=== PATIENT | female | born 1950 ===

== ENCOUNTER → 2021-04-03 09:09 | Outpatient (CLI) | payer MEDICARE, OTHER, SELFPAY ==
[2021-04-03 11:45] LABS: BUN Creatinine Ratio 23.6 (6-22); Blood Urea Nitrogen 21 mg/dL (7-17); Calcium 9.8 mg/dL (8.4-10.2); Carbon Dioxide 30 mmol/L (22-32); Chloride 102 mmol/L (98-107); Estimated Glomerular Filt Rate > 60.0 mL/min (>60); Glucose 108 mg/dL (80-110); HEMOLYSIS < 15 (0-50); Potassium 4.3 mmol/L (3.4-5.1); Sodium 139 mmol/L (137-145)
[2021-04-04 11:28] LABS: Add Manual Diff / Slide Review NO; Basophils Absolute Auto 0 /uL (0-100); Basophils Percent Auto 0.4 % (0-2); Eosinophils Absolute Auto 0 /uL (0-450); Hematocrit 37.7 % (36-46); Hemoglobin 12.5 g/dL (12.0-16.0); Lymphocytes Absolute Auto 1700 /uL (1100-4500); Lymphocytes Percent Auto 14.9 % (25-40); Mean Corpuscular HGB Conc 33.2 % (30-36); Mean Corpuscular Hemoglobin 30.7 PG (26-34); Mean Corpuscular Volume 92.6 fL (80-100); Monocytes Absolute Auto 800 /uL (0-900); Monocytes Percent Auto 6.7 % (3-14); Neutrophils Absolute Auto 8800 /uL (1500-7000); Platelet Count 274 X10^3/uL (150-400); Red Blood Cell Count 4.07 X10^6/uL (4.0-5.2); Red Cell Distribution Width 13.3 % (11.6-14.8); White Blood Cell Count 11.2 X10^3/uL (4.5-11.0)
== END ==
PROVIDERS: Referring Provider Orthopaedic Surgery Orthopaedic Surgery of the Spine; Visit Provider Orthopaedic Surgery Orthopaedic Surgery of the Spine
DX: Z01.818 Encounter for other preprocedural examination (principal); Z01.812 Encounter for preprocedural laboratory examination; I10 Essential (primary) hypertension
CPT/HCPCS: 36415; 80048; 85025; 93005; 93010

== ENCOUNTER → 2021-06-30 08:57 | Outpatient (CLI) | payer MEDICARE, OTHER, SELFPAY ==
[2021-06-30 10:14] LABS: COVID19 -Nasal RAPID Negative (Negative)
== END ==
PROVIDERS: Visit Provider Physician Assistant
DX: Z01.812 Encounter for preprocedural laboratory examination (principal); Z20.822 Contact with and (suspected) exposure to COVID-19
CPT/HCPCS: 87635

== ENCOUNTER 2021-07-02 09:16 | Day surgery (SDC) | payer MEDICARE, OTHER, SELFPAY ==
[2021-06-25 09:39] VITALS: BMI 24.2
[2021-07-02 09:47] VITALS: BP 153/76; PULSE 81; RESP 12; TEMP 36.4; O2SAT 100; BMI 24.6
[2021-07-02] MEDS: ACETAMINOPHEN 325 MG TABLET 650 MG PO (09:56)
[2021-07-02] MEDS: GABAPENTIN 300 MG CAPSULE PO (09:56)
[2021-07-02] MEDS: LACTATED RINGERS 1,000 ML 42 ML IV ×2 (09:56→12:23)
--- NOTE | 2021-07-02 11:07 | PM.PREOP ---
Pre-operative Note COVID-19 COVID-19 status: Negative Result date/Date tested (Pos, Neg/Pending): 06/30/21 Interval Note History & Physical reviewed/Exam performed by Physician: Yes Changes to H&P: No
--- NOTE | 2021-07-02 11:52 | P.OP_ITS ---
Operative Date/Time/Diagnoses Date of procedure: 07/02/21 Time of procedure: 11:50 Pre-op diagnosis: 1. L4-5 spondylolisthesis 2. L4-5 spinal stenosis with neurogenic claudication Post-op diagnosis: same Procedure & Clinicians Procedure: 1. L4-5 Postero-lateral and posterior interbody fusion 2. L4-5 interbody cage placement. 3. L4-5 decompressive laminectomy with bilateral facetecomies 4. L4-5 Posterior non-segmental instrumentation 5. [place] of bone marrow from iliac crest 6. Utilization of microsurgical technique and operating microscope Same procedure as scheduled: Yes Indications: Patient has been having chronic back pain and worsening lumbar radiculopathy. Patient failed multiple conservative management with worsening pain weakness and numbness in her lower extremity. Patient has been having difficulty performing activity of daily living. After discussing risks benefits of treatment options, patient elected proceed with surgery. Surgeon: Tad Weiner Salesperson Women'S Hats: Ovidio Gay Click Yes if Unassisted: No Anesthesia Type: General Operative Notes Closure Type: primary Specimen(s): none sent Prosthetic devices, grafts, tissues, transplants, or devices: Globus revolve screws, Rise cage Blood products transfused: none Complications: none Post-operative Condition: stable
[2021-07-02 12:17] VITALS: BP 124/65; PULSE 75; RESP 16; TEMP 36.7; O2SAT 99
[2021-07-02 12:22] VITALS: BP 120/65; PULSE 73; RESP 14; O2SAT 99
--- NOTE | 2021-07-02 12:27 | PM.EVENT ---
Event Note Date Patient Seen: 07/02/21 Time Patient Seen: 11:16 Event Note: DIFFICULT AIRWAY NOTE Patient presented for spinal surgery with Dr. Weiner. Patient was brought into the OR, PEDRO monitors applied and pre-oxygenated for >3 minutes in stretcher. IV induction with adequate mask ventilation. First direct layngoscopy with sharif 2 blade yielded a grade 2b view with the bottoms of the arytenoids barely visible with a BURP maneuver, unable to pass ETT. 2nd DL with Mac 3 gave a similar view, 6.5 ETT able to be passed. EtCO2 present but strange waveform. Bilateral coarse breathsounds present, but continued strange or abscent waveform and high pressures with ventilator. Additional IV sedation given, ETT withdrawn, mask ventilation with Oralpharyngeal airway accomplished with (+) EtCO2 tracing. Additional IV sedation and paralysis given. 3rd look with glidescope LoPro S3, (additionally patient's hair bun moved to facilitate better positioning). View obstructed by right tonsillar pillar, epiglottis not well visualized, base of arytenoids found, 6.5 ETT passed. Again EtCO2 wave strange or abscent. (+) coarse bilateral breath sounds. Albuterol given through ETT. Concern for possible leak. ETT exchanged over tube exchanger (6.0). SpO2 declining. Assistance called. Dr. Martin available and willing to assist. [place] placed below head, moved up in stretcher. DL with Sharif 2 with similar grade 2b view, 6.0 ETT passed. Again EtCO2 poor, high ventilator pressures and declining SpO2. Low dose epinephrine and additional albuterol given. ETT removed, with successful mask ventilation with 2 providers and OPA. Spontaneous ventilation returned with adequate tidal volumes and continued 100% O2 saturation. Decision made to reschedule case. Patient taken to PACU, with good vital signs there. Decadron and ondansetron given for airway swelling and nausea prevention. For rescheduling, patient will be noted to have had a difficult airway in the past. Would anticipate successful intubation with optimal positioning, first look with glidescope or optical stylette (available to one of my colleagues) and low threshold for awake intubation if unsuccessful first laryngoscopy. Naima CULLEN Anesthesiology
[2021-07-02 12:31] VITALS: BP 127/67; PULSE 73; RESP 16; O2SAT 99
[2021-07-02 12:33] VITALS: BP 128/68; PULSE 73; RESP 14; TEMP 36.7; O2SAT 99
[2021-07-02 13:15] VITALS: BP 137/77; PULSE 70; RESP 14; TEMP 36.2; O2SAT 100
--- NOTE | 2021-07-02 13:20 | SUR.PHASEII ---
[Procedure aborted. Dr Kingsley and Dr Weiner spoke with pt in Phase II.
--- NOTE | 2021-07-05 15:47 | PM.PN.1 ---
Subjective Subjective Interval history: TELEPHONE ENCOUNTER Called patient at surgeon request. Complaint of chest and upper body tightness/muscle spasms. Patient was sleeping, but son described what had been going on. Likely muscle pain/soreness from succinylcholine use. Son stated that robaxin prescribed yesterday has helped some, but makes her tired. He was told by the RN to do acetaminophen and ibuprophen scheduled Q8hr, but was unsure whether it was okay with the muscle relaxant. Also throat sore. Recommended continue scheduled acetaminophen and ibuprofen. Explained the muscle pain caused by succinylcholine and its likely course. Throat pain likely for several days after multiple airway manipulations. Lozenges, tea with honey can help. He expressed understanding and will contact if has further questions. Exam Vital Signs (past 8 hours): Oxygen Delivery Method Room Air [facility] Medical History (Updated 07/02/21 @ 12:42 by Naima Kingsley MD) Arthritis Difficult airway Easy bruisability HLD (hyperlipidemia) HTN (hypertension) Numbness and tingling of both feet Numbness and tingling of both legs Seasonal depression Surgical History (Updated 06/25/21 @ 10:11 by Shawna Deleon RN) Hx of colonoscopy Social History household members: children Smoking Status: Former smoker alcohol intake: current
== END 2021-07-02 13:50 | disposition home or self-care (01) ==
LOC: OR 09:18 → AC 09:18
PROVIDERS: PCP Physician Assistant Medical; Referring Provider Orthopaedic Surgery Orthopaedic Surgery of the Spine; Visit Provider Orthopaedic Surgery Orthopaedic Surgery of the Spine
PROC: (CPT 22633; principal; 2021-07-02 11:15)
DX: M48.062 Spinal stenosis, lumbar region with neurogenic claudication (principal); M43.16 Spondylolisthesis, lumbar region; Z53.09 Procedure and treatment not carried out because of other contraindication
CPT/HCPCS: 22633; 82962; J0330; J1100; J2405; J2704

== ENCOUNTER → 2021-08-15 08:07 | Outpatient (CLI) | payer MEDICARE, OTHER, SELFPAY ==
[2021-08-15 14:19] LABS: COVID19 -Nasal RAPID Negative (Negative)
== END ==
PROVIDERS: PCP Physician Assistant Medical; Visit Provider Physician Assistant
DX: Z20.822 Contact with and (suspected) exposure to COVID-19 (principal)
CPT/HCPCS: 87635; C9803

== ENCOUNTER 2021-08-17 10:38 | Inpatient (IN) | payer MEDICARE, OTHER, SELFPAY ==
[2021-08-13 09:51] VITALS: BMI 24.2
[2021-08-17] VITALS (15 sets, daily range): BP systolic 118–177; BP diastolic 68–91; PULSE 59–95; RESP 12–18; TEMP 36.3–37.1; O2SAT 92–100; BMI 24.2
[2021-08-17] MEDS: LACTATED RINGERS 1,000 ML 42 ML IV ×2 (11:12→16:00)
--- NOTE | 2021-08-17 13:16 | PM.PREOP ---
Pre-operative Note COVID-19 COVID-19 status: Negative Result date/Date tested (Pos, Neg/Pending): 08/15/21 Interval Note History & Physical reviewed/Exam performed by Physician: Yes Changes to H&P: No
[2021-08-17] MEDS: CEFAZOLIN 1 GM VIAL 2 GM IV (14:10)
--- NOTE | 2021-08-17 14:28 | SUR.OPER ---
Prone on spine table, head in foam head support, padded chest and pelvic supports, gel pad at knees, lower legs supported by pillows; nipples, genitalia and toes free of pressure, arms secured on foam padded arm boards at <90 degrees abduction. Tape over blanket at thigh secured to table.
[2021-08-17] MEDS: BUPIVACAINE LIPOSOME 266 MG/20 ML VIAL INJ (14:35)
[2021-08-17] MEDS: BUPIVACAINE 0.25% (PF) VIAL 30 ML INJ (14:38)
[2021-08-17] MEDS: EPINEPHrine 1 MG/ML SUBCUT (14:40)
--- NOTE | 2021-08-17 16:28 | DI.RAD.S_ITS ---
PROCEDURE: XR LUMBAR SPINE 2-3V INDICATIONS: L4-5 TLIF TECHNIQUE: 2 views of the lumbar spine were acquired. COMPARISON: [facility], XR LUMBAR SPINE 2 OR 3 VIEWS, 01/25/2021, 11:20. FINDINGS: Fluoroscopic images demonstrating L4-5 posterior fusion with intervertebral spacer. There is good anatomic alignment. IMPRESSION: Intraoperative fluoroscopic images. Dictated by: Carrie Zepeda M.D. on 08/17/2021 at 16:43 Approved by: Carrie Zepeda M.D. on 08/17/2021 at 16:43
--- NOTE | 2021-08-17 16:37 | PM.OP.1 ---
Operative Date/Time/Diagnoses Date of procedure: 08/17/21 Time of procedure: 13:00 Pre-op diagnosis: 1. L4-5 spondylolisthesis 2. L4-5 spinal stenosis with neurogenic claudication 3. L3-4 spinal stenosis with radiculopathy Post-op diagnosis: same Procedure & Clinicians Procedure: 1. L4-5 Postero-lateral and posterior interbody fusion 2. L4-5 interbody cage placement. 3. L4-5 decompressive laminectomy with bilateral facetecomies 4. L4-5 Posterior non-segmental instrumentation 5. L3-4 left hemilaminectomy 6. [place] of bone marrow from iliac crest 7. Utilization of microsurgical technique and operating microscope Same procedure as scheduled: Yes Indications: Patient has been having chronic back pain and worsening lumbar radiculopathy. Patient failed multiple conservative management with worsening pain weakness and numbness in her lower extremity. Patient has been having difficulty performing activity of daily living. After discussing risks benefits of treatment options, patient elected proceed with surgery. Surgeon: Tad Weiner Cook House Supervisor: Paul Balderas Click Yes if Unassisted: No Anesthesia Type: General Operative Notes Closure Type: primary Specimen(s): none sent Prosthetic devices, grafts, tissues, transplants, or devices: Globus revolve screws, Rise cage Estimated Blood Loss (mL): 50 Blood products transfused: none Procedure in detail: Patient was seen in the preoperative area. Risks and benefits of the surgery was discussed with the patient. Informed consent was obtained from the patient and placed in the chart. Surgical site was marked. Patient was taken to the operative room. General anesthesia was administered. Prophylactic antibiotic was given to the patient less than 30 min before the incision was made. Patient was placed into a prone position on the Bertrand table. Patient's back was then prepped and draped in the sterile fashion. Time-out was performed at this time. Using AP and lateral C-arm imaging the interval between L4-5 was identified and marked on patient's back. A 2 inch incision 2 in from midline was made on the left side first. The fascia was incised in line with skin incision. Globus MARS retractors was placed inside the incision and docked onto the L4 lamina. Using microsurgical technique and operating microscope, a L4 laminectomy and L4-5 facetectomy was performed using a Kerrison rongeur. The disc space at L4-5 was identified. And a total diskectomy was performed at L4-5 level. The endplates were decorticated using a rasp and shaver. The total diskectomy and decortication was performed at L4-5 level in order to to accomplish a L4-5 fusion. The local bone from the laminectomy and facetectomy was saved for local bone grafting. After the total diskectomy and decortication was completed, Trifecta bone graft material was combined with local bone that was harvested earlier. At this time, a separate skin is incision was made over the iliac crest. A Jamshidi needle was inserted into the iliac crest through a separate skin incision. 5 cc of bone marrow aspiration was obtained through the separate skin incision using a Jamshidi needle from the iliac crest. The bone marrow aspiration was combined with local bone and the Trifecta bone grafting material. The bone grafting material was placed into the L4-5 interbody space along with a expandable cage. The cage was expanded to its maximum height using the torque limiting screwdriver. The MARs retractor was then redirected over the L3-4 level. Using microsurgical technique and operating microscope a L3-4 left hemilaminectomy was performed using Kerrison rongeur. Lateral recess was also decompressed using a Kerrison rongeur undercutting the L3-4 facet on the left side to further decompress the epidural space and neural foramen. Good decompression was confirmed by palpating the neural foramen to confirm its patency. At this time a mirror image incision was made on the right side. The fascia was incised in line with the skin incision. Globus MARS retractor was inserted and docked onto the L4-5 posterolateral gutter. Using the power drill, posterior-lateral decortication was performed at L4-5 level until bleeding cortical bone was identified. The remaining bone grafting material was placed into the L4-5 posterior lateral gutter he order to accomplish posterolateral fusion at the L4-5 level. Using the double C-arm technique, pedicle screws were placed into the L4-5 pedicles bilaterally. This was done by placing the Jamshidi needle into the pedicles, then placing the guidewires over the Jamshidi needle, and finally placing the cannulated screws over the guidewires bilaterally. After the pedicle screws were placed, 2 titanium rods was locked into the heads of the pedicle screws using locking caps and torque limiting screwdriver. Threaded reducers were used to reduce patient's spondylolisthesis at L4-5 level. Excellent reduction was accomplished and maintained using the hardware placed. After all the hardware was placed, and confirmed with AP and lateral C-arm imaging, the wound was then irrigated with sterile normal saline and packed with Ray-Ro gauze for 3 min to accomplish hemostasis. After the gauze was removed the deep fascia was closed with #1 Vicryl suture. The subcutaneous layer was closed with 2-0 Vicryl. The skin was closed with skin asif. Patient tolerated the procedure well. There were no complications. Complications: none
[2021-08-17] MEDS: fentaNYL 100 MCG/2 ML INJ IV (17:00)
--- NOTE | 2021-08-17 17:08 | SUR.PHASEI ---
neuro checks show 5/5 strength throughout lower extremities. denies radiation of pain other than wound pain. denies numbness or paresthesia.
--- NOTE | 2021-08-17 17:27 | SUR.PHASEI ---
report to floor nurse. patient stable and ready for transfer. BP at baseline.
[2021-08-17] MEDS: SODIUM CHLORIDE 0.9% 1,000 ML 100 ML IV (18:29)
[2021-08-17] MEDS: HYDROMORPHONE 0.5 MG INJ IV (18:29)
[2021-08-17] MEDS: CEFAZOLIN 1 GM VIAL IV (21:04)
[2021-08-17] MEDS: ATORVASTATIN 20 MG TABLET 10 MG PO (21:04)
[2021-08-17] MEDS: OXYCODONE IR 10 MG TABLET PO (23:31)
[2021-08-18 01:24] VITALS: BP 140/76; PULSE 91; RESP 16; TEMP 37.4; O2SAT 99
--- NOTE | 2021-08-18 02:16 | PC.NURSE ---
Patient is alert and oriented. Breath sounds CTA with RA sat of 99%. HRR with elevated BP of 160/91 earlier and most recent BP improved at 140/76. Denied nausea. BT present but denies passing flatus as yet. At shift change was gotten up to bathroom with walker and 1 assist and voided 400cc; denied dysuria. Is able to turn herself in bed. Ambulated well with walker but states she feels a little weak. Dressing to back is intact with shadow drainage noted. Denies tingling/numbness and has good cap refill. Wearing bilateral foot SCD's. Medicated with oxycodone for 8/10 pressure type back pain and is currently asleep. Fall risk score is moderate and bed alarm is activated.
[2021-08-18] MEDS: OXYCODONE IR 10 MG TABLET PO ×2 (03:24→09:28)
[2021-08-18] MEDS: SODIUM CHLORIDE 0.9% 1,000 ML 100 ML IV (04:17)
[2021-08-18] MEDS: CEFAZOLIN 1 GM VIAL IV (05:34)
[2021-08-18 06:45] VITALS: BP 144/71; PULSE 87; RESP 16; TEMP 37.4; O2SAT 96
[2021-08-18 07:50] VITALS: BP 149/85; PULSE 86; RESP 20; TEMP 36.7; O2SAT 98
--- NOTE | 2021-08-18 07:59 | PC.NURSE ---
Addendum entered by Misty Aguirre R.N. 08/18/21 10:12: Patient given oxycodone for comfort, she will work with physical therapy and then be able to go home. Original Note: Assess- Patient is alert and oriented x3. Her incision to back is cdi with a small amount of dried drainage. She is a one person assist with the walker. She denies numbness or tingling to her lower extremities and her family member is at bedside.
--- NOTE | 2021-08-18 09:19 | P.DS_ITS ---
History of Present Illness History of Present Illness Date Patient Seen: 08/18/21 Time Patient Seen: 09:20 Chief complaint: Low back pain status post lumbar fusion Narrative: The patient is complaining of [id number] back pain this morning. She denies numbness, tingling. No fevers, chills, night sweats. No nausea or vomiting. Overall she is feeling well. She has not worked with physical therapy yet. If she continues to progress well, she would like to go home this evening. Discharge Providers Provider Discharge Date: 08/18/21 Primary care physician: Leigh Ann Falk PA-C Consults: 08/17/21 18:09 Consult to Physical Therapy Evaluate & Treat Comment: s/p L3-4 left hemilaminectomy Physician Instructions: Evaluate and Treat Discharge provider: Zuleyma Watson PA-C Summary Hospital Course Discharge Diagnosis: 1. L4-5 spondylolisthesis 2. L4-5 spinal stenosis with neurogenic claudication 3. L3-4 spinal stenosis with radiculopathy Hospital Course: Procedure: 1. L4-5 Postero-lateral and posterior interbody fusion 2. L4-5 interbody cage placement. 3. L4-5 decompressive laminectomy with bilateral facetecomies 4. L4-5 Posterior non-segmental instrumentation 5. L3-4 left hemilaminectomy 6. [place] of bone marrow from iliac crest 7. Utilization of microsurgical technique and operating microscope Same procedure as scheduled: Yes Indications: Patient has been having chronic back pain and worsening lumbar radiculopathy. Patient failed multiple conservative management with worsening pain weakness and numbness in her lower extremity.? Patient has been having difficulty performing activity of daily living.? After discussing risks benefits of treatment options, patient elected proceed with surgery. Surgeon: Tad Weiner Campaign Associate: Paul Baldersa Click Yes if Unassisted: No Anesthesia Type: General Operative Notes Closure Type: primary Specimen(s): none sent Prosthetic devices, grafts, tissues, transplants, or devices: Globus revolve screws, Rise cage Estimated Blood Loss (mL): 50 Blood products transfused: none Status at Discharge Cognitive/behavioral status at discharge: oriented Functional status at discharge: uses cane/walker Overall status at discharge: patient is progressing back to baseline Exam Vital Signs (past 8 hours): - 08/18/21 01:24 08/18/21 06:45 08/18/21 07:50 Temperature 99.4 F 99.4 F 98.0 F Pulse Rate 91 H 87 86 Respiratory Rate 16 16 20 Blood Pressure 140/76 144/71 H 149/85 H Pulse Oximetry 99 96 98 Oxygen Delivery Method Room Air Oxygen Flow Rate 0 Narrative Exam Narrative: Pleasant 71-year-old female, resting comfortably in bed, no acute distress. Daughter is at bedside. Incision demonstrates approximately 50-75% saturation with blood. Bilateral lower extremity motor function intact. Bilateral lower extremity sensation to is intact to light touch. Bilateral calves are soft, nontender to palpation. PFSH Medical History Arthritis Difficult airway Easy bruisability HLD (hyperlipidemia) HTN (hypertension) Numbness and tingling of both feet Numbness and tingling of both legs Seasonal depression Surgical History Hx of colonoscopy Social History household members: children Smoking Status: Former smoker alcohol intake: current Discharge Assessment & Plan Assessment and Plan Assessment: Stable status post lumbar fusion Plan of Treatment: -limit bending, lifting, twisting. Weightbearing as tolerated with front wheel walker -mobilize with PT. Ideally 2 sessions of PT today. -change dressing before patient is DCed -plan on DC home today after cleared by 2 sessions of PT and bandage change. Her son and granddaughter live with her, and she has a lot of support. Discharge Plan Discharge Plan Patient Disposition: Home Discharge orders & Medications Discharge Orders: Discharge (Order); Ordered 08/18/21 Ordered By: Zuleyma Watson Prescriptions: New oxycodone 5 mg tablet See Rx Instructions .ROUTE .COMPLEX PRN (Reason: Pain, Severe (7-10)) Qty: 42 RF: 0 acetaminophen [Tylenol Extra Strength] 500 mg tablet 500 mg PO Q4H MDD max 6 tabs/day PRN (Reason: pain) Qty: 90 RF: 0 polyethylene glycol 3350 [Miralax] 17 gram/dose powder 17 g PO DAILY PRN (Reason: constipation from narcotic pain meds) Qty: 119 RF: 0 Continued atorvastatin 10 mg Tablet 10 mg PO BEDTIME RF: 0 ibuprofen 200 mg Capsule 200 - 400 mg PO Q6H PRN (Reason: Pain) RF: 0 aspirin [Aspirin Low Dose] 81 mg Tablet,Delayed Release (Dr/Ec) 81 mg PO DAILY RF: 0 amlodipine 10 mg Tablet 10 mg PO DAILY RF: 0 olopatadine 0.1 % Drops 1 drp EYE-BOTH BID PRN (Reason: Dry eyes, allergies) RF: 0 magnesium 250 mg Tablet 250 mg PO DAILY RF: 0 lisinopril 40 mg Tablet 40 mg PO DAILY RF: 0 Follow up/Referrals: Tad Weiner MD [Physician] - (10-14 days for postoperative visit) Leigh Ann Falk PA-C [Primary Care Provider] - Diet/Activity/Treatments Diet: Diet as Tolerated and Regular Activity: -limit bending, lifting, twisting -weight-bearing as tolerated with front wheel walker Cold/Heat Therapy: -use ice as needed for pain Skin/Wound/Dressing Care Report to your healthcare provider any signs of infection, such as:: chills, fever, night sweats, unusual drainage and unusual redness Dressing: -okay to shower after 48 hours -call the office if dressing becomes wet, soiled, saturated Visit Report/Discharge Packet Instructions: DI for Transforaminal Lumbar Interbody Fusion Stand Alone Forms: Surgery Discharge Discharge Data Primary Care Provider: Leigh Ann Falk Attending Provider: Tad Weiner Quality VTE Deep Vein Thrombosis/Pulmonary Embolism Present on Admission: No
[2021-08-18] MEDS: AMLODIPINE 5 MG TABLET 10 MG PO (09:28)
[2021-08-18] MEDS: MAGNESIUM OXIDE 400 MG TABLET PO (09:28)
[2021-08-18] MEDS: lisinopriL 20 MG TABLET 40 MG PO (09:28)
--- NOTE | 2021-08-18 11:17 | PT.IIE ---
Current Diagnoses Spondylolisthesis, lumbar region (08/17/21) Spinal stenosis, lumbar region with neurogenic claudication (08/17/21) Surgery Performed Operation Date: 08/17/21 12:15 Actual Procedures p L3-4 left hemilaminectomy, L4-5 TLIF w. posterior instrumentation - Tad Weiner MD Medical History (Last Reviewed 08/18/21 @ 09:23 by Zuleyma Watson PA-C) Arthritis Difficult airway Easy bruisability HLD (hyperlipidemia) HTN (hypertension) Numbness and tingling of both feet Numbness and tingling of both legs Seasonal depression Physical Therapy Inpatient Evaluation/Re-Eval M1 PT/OT-IP Prior Functional Status Start: 08/18/21 13:00 Freq: NEEDED Status: Discharge Protocol: Document 08/18/21 11:17 DLM (Rec: 08/18/21 13:32 DLM [id number]) Medical Review Prior Functional Status Medical History Reviewed Yes Diet/Fluid Consistency Regular Communication WNL Mobility and Gait Independent without device, has used 4WW in past to manage her back pain Activities of Daily Living and IADL's Independent, likes to garden Social History Household Members children Living Arrangements House Number of Floors (Floors) One Floor Number of Stairs To Enter/Railing? 3 x 1 step, no rails Home Environment Standard Height Toilet,Walk in Shower,Built-In Shower Seat Home Equipment Four Wheel Walker,Hand Held Shower Employment Status Retired M2 PT-IP Current Condition Start: 08/18/21 13:00 Freq: NEEDED Status: Discharge Protocol: Document 08/18/21 11:17 DLM (Rec: 08/18/21 13:32 DL [id number]) Physical Therapy Current Condition Current Condition Evaluation Date 08/18/21 Treatment Diagnosis L3-4 Lami, L4-5 TLIF, gait impaired Onset Date 08/16/21 Precautions Lumbar Precautions Log Roll,No Twisting,Limit Bending,Lifting Restriction of 10 lbs,Gait Belt above Incisional Area M3 PT-IP Subjective Start: 08/18/21 13:00 Freq: NEEDED Status: Discharge Protocol: Document 08/18/21 11:17 DLM (Rec: 08/18/21 13:32 DL [id number]) Subjective Physical Therapy Visit Type Visit Start Time 10:25 Visit Stop Time 11:17 Total Visit Minutes 52 Number of CONFIGURATION ENGINEER Visits 0 Physical Therapy Visit Comments Patient Comments She has family to help her at home after discharge Patient Goals she wants to go home Therapy Pain Assessment Pain When Pain Assessed During Mobility Pain Present Pain Present Pain Reported Location Back Intensity 5 Scale Used Numeric (0 - 10) Description Aching,With Movement Pain Behaviors Guarding Pain Management Techniques Modification of Treatment,Re- positioning,Timing of Activity with Medications M4 PT-IP Mobility and Gait Start: 08/18/21 13:00 Freq: NEEDED Status: Discharge Protocol: Document 08/18/21 11:17 DLM (Rec: 08/18/21 13:32 DLM [id number]) PT-Bed Mobility Assessment Supine to Sit Supine to Sit Contact Guard Assistance, Minimal Assistance Sit to Supine Sit to Supine Minimal Assistance,Moderate Assistance Scooting Scooting to Edge of Bed Independent PT-Transfer Assessment Sit to and From Stand Sit to and from Stand Standby Assistance,Use of Upper Extremities Equipment Transfer Assistive Device Gait Belt,Front Wheeled Walker Transfers Transfer Destination Bed,Chair,Toilet Transfer Technique Stand Step Pivot Transfer Ability Level of Assist Standby Assistance,Use of Upper Extremities Comments Mobility Comments pt up to toilet to urinate, pt left in recliner at the end of this visit with Daughter visiting Gait Assessment Gait Gait Assistance Required: Standby Assistance Distance (Feet) 60 Assistive Devices Assistive Device Gait Belt,Front Wheeled Walker Gait Deviations General Gait Pattern Decreased Stride Length Factors Limiting Gait Function Factors Limiting Gait Function Decreased Activity Tolerance, Decreased Strength,Limited Range of Motion,Pain,Poor Balance Comments Gait Comments pt is currently using fWW for stability but not significant UE lean Stair Climbing Assessment Evaluation Level of Assist On Stairs Minimal Assistance Devices Stair Climbing Assistive Devices Front Wheel Walker Technique/Endurance Stair Climbing Direction Ascend and Descend Stair Climbing Technique Step to Step Number of Steps Climbed 1 Query Text: Stair Climbing Set # Repetitions (reps) 2 Comments Stair Climbing Comments she needs assist to manage the FWW on curb style step, did well stepping up/down PT-Balance Assessment Sitting Balance and Reactions Static Sitting Balance Ability Good Dynamic Sitting Balance Ability Good Standing Balance and Reactions Static Standing Balance Ability Good Dynamic Standing Balance Ability Good Device Used FWW M5 PT-IP Objective Assessments Start: 08/18/21 13:00 Freq: NEEDED Status: Discharge Protocol: Document 08/18/21 11:17 DLM (Rec: 08/18/21 13:32 PENDING SALE TO [facility] [id number]) Orientation Orientation/Cognition Level of Alertness Alert Orientation Name,Age,Birthday,Month,Date, Year,Day of Week,Place, Situation Language Function Ability No Deficits Noted Safety Awareness Understands Safety Issues Memory Description No Deficits Noted Comments she has a low voice so occasionally she has to repeat things to be fully understood , can make her needs known Gross Range of Motion Upper Extremity ROM Assessment Within Functional Limits Lower Extremity ROM Assessment Within Functional Limits Strength Upper Extremity Strength Assessment Within Functional Limits Lower Extremity Strength Assessment Bilaterally Impaired Hip moving actively with mild pain Knee functional for Wt bearing Ankle DF 5/5 Comments Strength Comments back pain limits functional strength at this time Coordination Assessment Gross Coordination Gross Coordination WNL Sensation Assessment Sensation Gross Sensation WNL Comments Sensation Comments no numbness reported in LE's at this time Muscle Tone Muscle Tone WNL Yes M6 PT-IP Treatment Start: 08/18/21 13:00 Freq: NEEDED Status: Discharge Protocol: Document 08/18/21 11:17 DL (Rec: 08/18/21 13:32 PEND[facility] SALE TO [facility] [id number]) Physical Therapy Treatment Exercises Exercises Ankle Pumps Education Education Provided Precautions,Post-Op Packet, Safety Other Treatments Other Treatment Performed Her Daughter participated in this visit and is able to assist as needed at home. Repeated functional movements to reinforce safe spine precautions. M7 PT-IP Assessment and Plan Start: 08/18/21 13:00 Freq: NEEDED Status: Discharge Protocol: Document 08/18/21 11:17 DL (Rec: 08/18/21 13:32 PENDING SALE TO [facility] [id number]) PT Summary Assessment and Plan Potential Rehabilitation Potential Excellent Status of Condition at Evaluation Evolving Summary Impairments Pain,ROM,Strength,Balance,Bed Mobility,Transfers,Gait, Activity Tolerance Assessment Summary Fabián is alert and shows good participation in physical therapy. She has a supportive family to assist at home. Getting in/out of bed is the most painful for her but her family is prepared to assist her to manage the pain. She demonstrates safe gait with FWW. She is able to go up and down one step to enable her to get in/out of the house. She appears safe to discharge home when medically cleared. Goals Bed Mobility Goal Standby Assistance Transfer Goal Standby Assistance,Front Wheeled Walker Gait Goal Standby Assistance,Front Wheel Walker Gait Distance 150 feet Other Goals Up and down one step with FWW and min assist Days to Meet Goals 1 Frequency of Treatment Frequency Of Treatment Twice a Day Treatment Plan Physical Therapy Treatment Plan Bed Mobility Training,Transfer Training,Gait Training, Therapeutic Exercise,Balance Retraining,Post Op Education, Discharge Planning,Hot or Cold Pack,Neuromuscular Re-ed Recommendations To Nursing Amount of Assist Needed 1 Person Assist Discharge Recommendations PT Discharge Recommendations Home with Assistance Other Discharge Recommendations Family is prepared to assist her at home Transportation Needs at Discharge Private Vehicle
[2021-08-18 11:30] VITALS: BP 142/71; PULSE 87; RESP 18; TEMP 36.7; O2SAT 94
--- NOTE | 2021-08-18 12:00 | OT.IP.EVAL ---
Current Diagnoses Spondylolisthesis, lumbar region (08/17/21) Spinal stenosis, lumbar region with neurogenic claudication (08/17/21) Surgery Performed Operation Date: 08/17/21 12:15 Actual Procedures p L3-4 left hemilaminectomy, L4-5 TLIF w. posterior instrumentation - Tad Weiner MD Past Medical History (Last Reviewed 08/18/21 @ 09:23 by Zuleyma Watson PA-C) Arthritis Difficult airway Easy bruisability HLD (hyperlipidemia) HTN (hypertension) Hx of colonoscopy Numbness and tingling of both feet Numbness and tingling of both legs Seasonal depression Surgical History (Last Reviewed 08/18/21 @ 09:23 by Zuleyma Watson PA-C) Hx of colonoscopy Occupational Therapy Inpatient Evaluation/Re-Eval M1 PT/OT-IP Prior Functional Status Start: 08/18/21 13:00 Freq: NEEDED Status: Discharge Protocol: Document 08/18/21 11:17 DLM (Rec: 08/18/21 13:32 DLM [id number]) Medical Review Prior Functional Status Medical History Reviewed Yes Diet/Fluid Consistency Regular Communication WNL Mobility and Gait Independent without device, has used 4WW in past to manage her back pain Activities of Daily Living and IADL's Independent, likes to garden Social History Household Members children Living Arrangements House Number of Floors (Floors) One Floor Number of Stairs To Enter/Railing? 3 x 1 step, no rails Home Environment Standard Height Toilet,Walk in Shower,Built-In Shower Seat Home Equipment Four Wheel Walker,Hand Held Shower Employment Status Retired M1 PT/OT-IP Prior Functional Status Start: 08/18/21 16:00 Freq: NEEDED Status: Active Protocol: Document 08/18/21 11:35 [facility] (Rec: 08/18/21 16:14 [facility] [id number]) Medical Review Prior Functional Status Medical History Reviewed Yes Diet/Fluid Consistency Regular Communication WNL Mobility and Gait Independent without device, has used 4WW in past to manage her back pain Activities of Daily Living and IADL's Independent, likes to garden Social History Household Members children Living Arrangements House Number of Floors (Floors) One Floor Number of Stairs To Enter/Railing? 3 x 1 step, no rails Home Environment Standard Height Toilet,Walk in Shower,Built-In Shower Seat Home Equipment Four Wheel Walker,Hand Held Shower Employment Status Retired M2 OT-IP Current Condition Start: 08/18/21 16:00 Freq: Status: Active Protocol: Document 08/18/21 11:35 [facility] (Rec: 08/18/21 16:14 [facility] [id number]) Occupational Therapy Current Condition Current Condition Evaluation Date 08/18/21 Treatment Diagnosis s/p L3-4 left paco, and L4-5 TLIF Post Operative Precautions Lumbar Precautions Log Roll,No Twisting,Limit Bending,Lifting Restriction of 10 lbs,Gait Belt above Incisional Area M3 OT- IP Subjective and Pain Start: 08/18/21 16:00 Freq: Status: Active Protocol: Document 08/18/21 11:35 [facility] (Rec: 08/18/21 16:14 [facility] [id number]) OT- Subjective Occupational Therapy Visit Type Type Initial Evaluation Visit Start Time 11:35 Visit Stop Time 12:00 Total Visit Minutes 25 Occupational Therapy Visit Comments Patient Comments Pt agreed to work with Ot for eval and pt's daughter in the room. Patient/Caregiver Goals To go home. OT Pain Assessment Pain When Pain Assessed At Rest Pain Present Pain Present Pain Reported Location Back Intensity 4 Scale Used Numeric (0 - 10) M4 OT- IP ADL's Start: 08/18/21 16:00 Freq: Status: Active Protocol: Document 08/18/21 11:35 [facility] (Rec: 08/18/21 16:14 [facility] [id number]) OT [id number] Comments OT Self-Feeding Comments NO at meal time. OT ADL-Grooming Comments OT Grooming Comments Pt states did earlier. OT ADL-Oral Care Comments Oral Care Comments Educated best to spit into a cup in order to best follow her back precautions. OT ADL-Dressing General Eval Lower Body Dressing Ability Maximum Assistance Areas Needing Assistance Underpants/Brief,Pants/Shorts, Socks,Shoes Comments OT Dressing Comments Pt needing assist to omkar clothing over her feet and cues to omkar weaker side first , her left leg. Able to show pt LB dressing equipment and able to practice, however per pt daughter since pt is a bit impulsive and independent would rather just be there to assist pt for her needs. OT ADL-Toileting Comments OT Toileting Comments Educated may be best to stand to wipe. In addition a bidet would be helpful for hygiene needs pending if financially viable. Pt's daughter aware to assist as needed. OT ADL-Bathing Comments OT Bathing Comments Pt states to shower at home. Educated best to have a shower chair and grab bar for the shower. M5 OT- IP IADL's Start: 08/18/21 16:00 Freq: Status: Active Protocol: Document 08/18/21 11:35 [facility] (Rec: 08/18/21 16:14 [facility] [id number]) OT-Instrumental Activities of Daily Living Home Safety Awareness Home Safety Comments Pt's daughter and son to be assist pt for all needs. Pt is a little impulsive and groggy at this time. M6 OT- IP Functional Cognition Start: 08/18/21 16:00 Freq: Status: Active Protocol: Document 08/18/21 11:35 [facility] (Rec: 08/18/21 16:14 [facility] [id number]) Cognitive Factors Limiting Selfcare Function Cognitive Ability Level of Alertness Alert Patient Orientation Name,Place,Situation Attention Span Ability Capable of Focused Attention, Capable of Sustained Attention Ability to Follow Commands Able to Follow One Step Commands Memory Description No Deficits Noted Safety Awareness Decreased Ability to Apply Precautions,Underestimates Need for Assistance Cognitive Comments Cognitive Assessment Comments Pt a bit impulsive and needing safety cues to follow her back precautions and to also push up on the armrests of the recliner before coming to stand. OT- Vision and Hearing OT- Hearing Assessment OT- Hearing Assessment WFL OT- Vision Assessment Visual Acuity Glasses All The Time M7 OT- IP Mobility and Balance Start: 08/18/21 16:00 Freq: Status: Active Protocol: Document 08/18/21 11:35 [facility] (Rec: 08/18/21 16:14 [facility] [id number]) OT-Transfer Assessment Sit to and From Stand Sit to and from Stand Contact Guard Assistance Transfers Transfer Ability Contact Guard Assistance Technique Transfer Destination Chair Transfer Technique Stand Step Pivot Devices Transfer Assistive Devices Gait Belt,Front Wheeled Walker Comments Mobility Comments Pt's daugther educated how to omkar/doff the gait belt and able to show good safety to assist pt for all mobility needs with FWW. Suggested may want to use recliner initially to sleep in and pt has a more difficulty time to get into and out of the bed. Per PT, daughter having to assist with her legs. OT- Balance Assessment Sitting Balance and Reactions Static Sitting Balance Ability Normal Dynamic Sitting Balance Ability Good Standing Balance and Reactions Static Standing Balance Ability Good Dynamic Standing Balance Ability Fair M8 OT- IP Objective Assessments Start: 08/18/21 16:00 Freq: Status: Active Protocol: Document 08/18/21 11:35 [facility] (Rec: 08/18/21 16:14 [facility] [id number]) OT Gross Range of Motion Upper Extremity Range of Motion Assessment Within Functional Limits OT- Coordination Assessment Comments Coordination Comments Arthritic changes in hands OT-Muscle Tone Assessment Muscle Tone WNL Yes M9 OT- IP Assessment and Plan Start: 08/18/21 16:00 Freq: Status: Active Protocol: Document 08/18/21 11:35 [facility] (Rec: 08/18/21 16:14 [facility] [id number]) OT Summary Assessment and Plan Potential Rehabilitation Potential Excellent Analytic Complexity at Evaluation Low Summary OT Impairments Pain,Balance,Functional Mobility,Dressing,Toileting, Bathing,Shower Transfers Progress Towards Goals Progressing Toward Goals Assessment Summary Pt low complexity and main barriers are steps, impulsive and needing cues to follow her back precautions. Pt's daughter present for caregiver training and able to show good safety and demonstration to be able to assist pt for all needs. Pt to go home with 24/7 available assist when medically ready. Goals Self-Feeding Goal Independent Grooming Goal Independent Dressing Goal Minimal Assistance Toileting Goal Minimal Assistance Bathing Goal Minimal Assistance Toilet Transfer Goal Independent Shower Transfer Goal Standby Assistance Patient/Caregiver Education Goal Demonstrate Post-Op Precautions,Caregiver Independent Assisting Patient Days to Meet Goals 5 Frequency of Treatment Frequency Of Treatment Once a Day Treatment Plan OT Treatment Plan ADL Training,Functional Cognition Training,Functional Mobility,Patient/Family Education,Discharge Planning Discharge Recommendations OT Discharge Recommendations Home with 24/7 Assist Available Home Equipment Needs shower chair, grab bar Transportation Needs at Discharge Private Vehicle
== END 2021-08-18 13:13 | disposition home or self-care (01) | DRG 455 ==
LOC: OR 10:38 → AC 10:39
PROVIDERS: Admitting Provider Orthopaedic Surgery Orthopaedic Surgery of the Spine; PCP Physician Assistant Medical; Referring Provider Orthopaedic Surgery Orthopaedic Surgery of the Spine; Visit Provider Orthopaedic Surgery Orthopaedic Surgery of the Spine
PROC: 0SG00AJ Fusion of Lumbar Vertebral Joint with Interbody Fusion Device, Posterior Approach, Anterior Column, Open Approach (ICD-10-PCS; principal; 2021-08-17 12:15)
DX: M43.16 Spondylolisthesis, lumbar region (principal); M48.062 Spinal stenosis, lumbar region with neurogenic claudication; M54.16 Radiculopathy, lumbar region; E78.5 Hyperlipidemia, unspecified; I10 Essential (primary) hypertension; Z87.891 Personal history of nicotine dependence; Z20.822 Contact with and (suspected) exposure to COVID-19
CPT/HCPCS: 72100; 76000; 87635; 97116; 97162; 97165; 97530; 97535; C1776; C9803; C9290; J0171; J0690; J1100; J1170; J2405; J2704; J3010

== ENCOUNTER → 2022-09-27 06:48 | Outpatient (CLI) | payer MEDICARE, OTHER, SELFPAY ==
[2021-08-17 18:32] VITALS: BMI 24.2
--- NOTE | 2022-09-27 | DI.MRI.S_ITS ---
PROCEDURE: MR LUMBAR SPINE WO CON INDICATIONS: Spinal stenosis, lumbar region with neurogenic claudication TECHNIQUE: Noncontrast sagittal T1 spin echo and T2 fast echo, sagittal STIR, and T2 fast spin echo through the lumbar spine. In cases with scoliosis, additional coronal T2 fast spin echo may be performed. COMPARISON: None. FINDINGS: Image quality: Excellent. Alignment and Curvature: There is normal bony alignment. Bone Marrow: L4-5 discectomy and fusion with posterior matt and screw instrumentation in place Spinal Cord: Conus medullaris terminates at the L1 level. Visualized cord demonstrates normal signal and size. Paraspinous Soft Tissues: No paravertebral masses. T12-L1: Normal appearance. L1-L2: Normal appearance. L2-L3: Disc space narrowing and circumferential disc bulge results in mild central stenosis. Moderate left and mild right foraminal stenosis L3-L4: Disc space narrowing with circumferential disc bulge, hypertrophic facet joints and ligamentum flavum laxity results in moderate to severe central stenosis. Mild left and no right foraminal stenosis L4-L5: Discectomy and fusion with instrumentation. No central stenosis. Moderate bilateral foraminal stenosis L5-S1: Disc space is maintained. No central or foraminal stenosis IMPRESSION: 1. Degenerative disc disease and arthropathy results in moderate to severe central stenosis L3-4. 2. L4-5 interbody fusion with instrumentation in good position. Approved by: Eliud Emerson M.D. on 09/27/2022 at 11:12
== END ==
PROVIDERS: PCP Physician Assistant Medical; Referring Provider Orthopaedic Surgery Orthopaedic Surgery of the Spine; Visit Provider Orthopaedic Surgery Orthopaedic Surgery of the Spine
DX: M48.062 Spinal stenosis, lumbar region with neurogenic claudication (principal); M51.36 Other intervertebral disc degeneration, lumbar region; M47.816 Spondylosis without myelopathy or radiculopathy, lumbar region; Z98.1 Arthrodesis status
CPT/HCPCS: 72148

== ENCOUNTER → 2022-10-02 10:28 | Outpatient (CLI) | payer MEDICARE, OTHER, SELFPAY ==
[2021-08-17 18:32] VITALS: BMI 24.2
[2022-10-02 11:25] LABS: COVID19 -Nasal RAPID Negative (Negative)
--- NOTE | 2022-10-03 19:11 | DI.NM.S_ITS ---
DATE OF SERVICE: 10/02/2022 PROCEDURE: Exercise perfusion study. INDICATION: Chest pain with underlying hypertension. RADIOPHARMACEUTICAL: 27.5 millicurie technetium-99m Myoview IV was injected at stress and 27.5 millicurie technetium-99m Myoview IV was injected at rest. CARDIAC STRESS: The patient underwent exercise perfusion study under the supervision of an attending staff. The patient walked on Deni protocol for 5 minutes and 49 seconds, achieved 7 METs of workload, DEVAUGHN -8 percent, maximum heart rate of 141, which was 97 percent of target heart rate. Baseline blood pressure 150/88. Peak blood pressure 198/70 mmHg. Baseline rhythm was sinus. During stress, no convincing ischemic changes seen. Occasional PVCs and PACs seen without any obvious atrial fibrillation or ventricular tachycardia. No claudication or chest pain. The patient felt fatigue. RAW DATA: Increased subdiaphragmatic activity. GATED STUDY: Stress LV ejection fraction 93 percent and resting LV ejection fraction 87 percent. No wall motion abnormalities. Resting end-diastolic volume 67 mL. TID ratio 1.0, which is within normal limits. Lung/heart ratio 0.42, which is within normal limits. MYOCARDIAL PERFUSION SCAN: Stress supine, resting supine and stress prone images were compared to each other. Resting supine images revealed small size, mildly decreased perfusion of distal inferolateral wall. On stress supine, there was minimally decreased perfusion of anteroapex. It got resolved during stress prone images. Stress prone images revealed normal myocardial perfusion. CONCLUSION: I will call this study a normal myocardial perfusion study with evidence with evidence of tissue attenuation artifact, which got resolved during stress prone images. Fair exercise tolerance. Normal hemodynamic response. No ischemic electrocardiographic changes. No complex sustained arrhythmias. No anginal symptoms. Overall, low-risk myocardial perfusion scan. Fabián Brasher - ESMER/isaiah/adarsh doc#: [id number]/job#: [id number] dd: 10/03/2022 17:04:00 dt: 10/03/2022 18:25:00 DICTATING MD/COPIES TO: Ryder Nettles MD COPIES MNE: YURIDIA;
== END ==
PROVIDERS: PCP Physician Assistant Medical; Referring Provider Physician Assistant Medical; Visit Provider Physician Assistant Medical
DX: R07.9 Chest pain, unspecified (principal); Z20.822 Contact with and (suspected) exposure to COVID-19; I10 Essential (primary) hypertension
CPT/HCPCS: 78452; 87635; 93017; A9502